=== PATIENT | female | born 1980 | race African-American/Black ===

== ENCOUNTER → 2022-03-05 | Day surgery (SDC) | payer OTHER ==
[2022-03-04 17:47] VITALS: BMI 34.9
[2022-03-05 07:38] VITALS: BP 90/57; PULSE 85; RESP 20; TEMP 97.8
== END | disposition home or self-care (01) ==
LOC: JASU-SURG 04:53
PROVIDERS: ATTEND Pain Medicine Pain Medicine
DX: Z53.9 Procedure and treatment not carried out, unspecified reason (principal)
CPT/HCPCS: 81025

== ENCOUNTER 2022-04-30 04:25 | Day surgery (SDC) | payer OTHER ==
[2022-04-25 11:52] VITALS: BMI 33.9
[~2022-04-30 04:25] MED LIST: BUPIVACAINE HCL/PF 0.25% (2.5MG/ML) 10 ML VIAL IJ ONE; DEXAMETHASONE SOD PHOSPHATE 10 MG/1 ML VIAL IM ONE; IOHEXOL 180 MG/1 ML ML IJ ONE; LIDOCAINE 1% P/F 10 MG/ML VIAL INF ONE
[2022-04-30] MEDS ORDERED: BUPIVACAINE HCL/PF 0.25% (2.5MG/ML) 10 ML VIAL ONE (07:29)
[2022-04-30] MEDS ORDERED: LIDOCAINE HCL/PF 1% SDV 5ML VIAL ONE (07:30)
[2022-04-30] MEDS ORDERED: TRIAMCINOLONE ACET 40MG/1ML VIAL ONE (07:30)
[2022-04-30] MEDS ORDERED: BUPIVACAINE HCL/PF 0.75% 10 ML VIAL ONE (07:30)
[2022-04-30] MEDS ORDERED: IOHEXOL 180 MG/1 ML ML IJ ONE ×3 (11:37→12:30)
[2022-04-30] MEDS ORDERED: LIDOCAINE 1% P/F 10 MG/ML VIAL INF ONE ×4 (11:37→11:50)
[2022-04-30] MEDS ORDERED: BUPIVACAINE HCL/PF 0.25% (2.5MG/ML) 10 ML VIAL IJ ONE (12:32)
[2022-04-30] MEDS ORDERED: DEXAMETHASONE SOD PHOSPHATE 10 MG/1 ML VIAL IM ONE (12:32)
[2022-04-30 13:06] VITALS: PULSE 68; RESP 22
[2022-04-30 13:31] VITALS: BP 95/55; TEMP 97.7
== END 2022-04-30 13:40 | disposition home or self-care (01) ==
LOC: JASU-SURG 04:25
PROVIDERS: ATTEND Pain Medicine Pain Medicine
PROC: 3E0T3BZ Introduction of Anesthetic Agent into Peripheral Nerves and Plexi, Percutaneous Approach (ICD-10-PCS; principal; 2022-04-30 10:30)
DX: G90.59 Complex regional pain syndrome I of other specified site (principal); G89.4 Chronic pain syndrome
CPT/HCPCS: 81025; J1100

== ENCOUNTER 2022-06-11 04:16 | Day surgery (SDC) | payer OTHER ==
[2022-06-07 12:26] VITALS: BMI 33.9
[~2022-06-11 04:16] MED LIST changes: -BUPIVACAINE HCL/PF 0.25% (2.5MG/ML) 10 ML VIAL IJ ONE; +BUPIVACAINE HCL/PF 0.5% (5MG/ML) 10 ML VIAL IJ ONE; +BUPIVACAINE HCL/PF 0.75% 10 ML VIAL NR ONE; -DEXAMETHASONE SOD PHOSPHATE 10 MG/1 ML VIAL IM ONE; -LIDOCAINE 1% P/F 10 MG/ML VIAL INF ONE; +LIDOCAINE HCL 1% PRESERVATIVE FREE - 30ML VIAL IJ ONE
[2022-06-11] MEDS ORDERED: DEXAMETHASONE SOD PHOSPHATE 10 MG/1 ML VIAL ONE (07:30)
[2022-06-11] MEDS ORDERED: BUPIVACAINE HCL/PF 0.25% (2.5MG/ML) 10 ML VIAL ONE (07:30)
[2022-06-11] MEDS ORDERED: LIDOCAINE HCL/PF 1% SDV 5ML VIAL ONE ×2 (07:30→12:35)
[2022-06-11] MEDS ORDERED: BUPIVACAINE HCL/PF 0.75% 10 ML VIAL NR ONE (12:07)
[2022-06-11] MEDS ORDERED: LIDOCAINE HCL 1% PRESERVATIVE FREE - 30ML VIAL IJ ONE ×2 (12:07)
[2022-06-11] MEDS ORDERED: IOHEXOL 180 MG/1 ML ML IJ ONE ×2 (12:10)
[2022-06-11] MEDS ORDERED: BUPIVACAINE HCL/PF 0.5% (5MG/ML) 10 ML VIAL IJ ONE (12:10)
[2022-06-11 13:20] VITALS: RESP 18; TEMP 97.9
[2022-06-11 14:17] VITALS: BP 104/61; PULSE 68
== END 2022-06-11 13:35 | disposition home or self-care (01) ==
LOC: JASU-SURG 04:16
PROVIDERS: ATTEND Pain Medicine Pain Medicine
PROC: 3E0T33Z Introduction of Anti-inflammatory into Peripheral Nerves and Plexi, Percutaneous Approach (ICD-10-PCS; 2022-06-11)
PROC: 3E0T3BZ Introduction of Anesthetic Agent into Peripheral Nerves and Plexi, Percutaneous Approach (ICD-10-PCS; principal; 2022-06-11 12:30)
DX: G89.4 Chronic pain syndrome (principal)
CPT/HCPCS: 76000-TC-FY; 81025; J1100

== ENCOUNTER 2022-08-02 04:10 | Day surgery (SDC) | payer OTHER ==
[2022-07-31 13:43] VITALS: BMI 33.9
[~2022-08-02 04:10] MED LIST changes: +ACETAMINOPHEN 500 MG TABLET (FP) PO PRN; -BUPIVACAINE HCL/PF 0.5% (5MG/ML) 10 ML VIAL IJ ONE; -BUPIVACAINE HCL/PF 0.75% 10 ML VIAL NR ONE; -IOHEXOL 180 MG/1 ML ML IJ ONE; -LIDOCAINE HCL 1% PRESERVATIVE FREE - 30ML VIAL IJ ONE
[2022-08-02] MEDS ORDERED: BUPIVACAINE HCL/PF 0.5% (5MG/ML) 10 ML VIAL ONE (07:30)
[2022-08-02] MEDS ORDERED: TRIAMCINOLONE ACET 40MG/1ML VIAL ONE (07:30)
[2022-08-02] MEDS ORDERED: LIDOCAINE HCL/PF 1% SDV 5ML VIAL ONE (07:30)
[2022-08-02 08:52] VITALS: RESP 18
[2022-08-02] MEDS ORDERED: ACETAMINOPHEN 500 MG TABLET (FP) PO PRN (09:21)
[2022-08-02] MEDS ORDERED: LIDOCAINE HCL 1% PRESERVATIVE FREE - 30ML VIAL IJ ONE ×2 (09:37→09:39)
[2022-08-02] MEDS ORDERED: TRIAMCINOLONE ACETONIDE 40 MG/ML 10 ML VIAL IJ ONE ×2 (09:38→09:39)
[2022-08-02] MEDS ORDERED: BUPIVACAINE HCL/PF 0.5% (5MG/ML) 10 ML VIAL IJ ONE ×2 (09:38→09:39)
[2022-08-02] MEDS ORDERED: IOHEXOL 180 MG/1 ML ML IJ ONE (09:39)
[2022-08-02 10:19] VITALS: BP 110/53; PULSE 79; TEMP 98.7
== END 2022-08-02 10:21 | disposition home or self-care (01) ==
LOC: JASU-SURG 04:10
PROVIDERS: ATTEND Pain Medicine Pain Medicine
PROC: 3E0U3BZ Introduction of Anesthetic Agent into Joints, Percutaneous Approach (ICD-10-PCS; 2022-08-02)
PROC: 3E0U33Z Introduction of Anti-inflammatory into Joints, Percutaneous Approach (ICD-10-PCS; principal; 2022-08-02 10:00)
DX: M53.3 Sacrococcygeal disorders, not elsewhere classified (principal)
CPT/HCPCS: 76000-TC-FY; 81025

== ENCOUNTER 2022-09-06 04:29 | Day surgery (SDC) | payer OTHER ==
[2022-09-05 09:15] VITALS: BMI 33.9
[2022-09-06 07:37] VITALS: RESP 16
[2022-09-06] MEDS ORDERED: BUPIVACAINE HCL/PF 0.75% 10 ML VIAL PNB ONE (11:00)
[2022-09-06] MEDS ORDERED: LIDOCAINE HCL 1% PRESERVATIVE FREE - 30ML VIAL IJ ONE (11:00)
[2022-09-06 11:31] VITALS: BP 121/70; PULSE 76; TEMP 98.8
[2022-09-06] MEDS ORDERED: ACETAMINOPHEN 500 MG TABLET (FP) PO PRN (14:43)
== END 2022-09-06 12:00 | disposition home or self-care (01) ==
LOC: JASU-SURG 04:29
PROVIDERS: ATTEND Pain Medicine Pain Medicine
PROC: 3E0T33Z Introduction of Anti-inflammatory into Peripheral Nerves and Plexi, Percutaneous Approach (ICD-10-PCS; 2022-09-06)
PROC: 3E0T3BZ Introduction of Anesthetic Agent into Peripheral Nerves and Plexi, Percutaneous Approach (ICD-10-PCS; principal; 2022-09-06 14:45)
DX: M47.816 Spondylosis without myelopathy or radiculopathy, lumbar region (principal)
CPT/HCPCS: 76000-TC-FY; 81025

== ENCOUNTER 2022-10-04 05:29 | Day surgery (SDC) | payer OTHER ==
[2022-10-03 09:37] VITALS: BMI 33.9
[~2022-10-04 05:29] MED LIST changes: -ACETAMINOPHEN 500 MG TABLET (FP) PO PRN; +BUPIVACAINE HCL/PF 0.75% 10 ML VIAL PNB ONE
[2022-10-04] MEDS ORDERED: BUPIVACAINE HCL/PF 0.75% 10 ML VIAL ONE (07:30)
[2022-10-04] MEDS ORDERED: LIDOCAINE HCL/PF 1% SDV 5ML VIAL ONE (07:30)
[2022-10-04 08:58] VITALS: RESP 18
[2022-10-04] MEDS ORDERED: ACETAMINOPHEN 500 MG TABLET (FP) PO PRN (09:57)
[2022-10-04] MEDS ORDERED: BUPIVACAINE HCL/PF 0.75% 10 ML VIAL PNB ONE (10:38)
[2022-10-04] MEDS ORDERED: LIDOCAINE HCL 1% PRESERVATIVE FREE - 30ML VIAL IJ ONE (10:38)
[2022-10-04 11:10] VITALS: TEMP 97.8
[2022-10-04 11:22] VITALS: BP 121/69; PULSE 70
== END 2022-10-04 11:20 | disposition home or self-care (01) ==
LOC: JASU-SURG 05:29
PROVIDERS: ATTEND Pain Medicine Pain Medicine
PROC: 3E0T33Z Introduction of Anti-inflammatory into Peripheral Nerves and Plexi, Percutaneous Approach (ICD-10-PCS; 2022-10-04)
PROC: 3E0T3BZ Introduction of Anesthetic Agent into Peripheral Nerves and Plexi, Percutaneous Approach (ICD-10-PCS; principal; 2022-10-04 10:30)
DX: M47.816 Spondylosis without myelopathy or radiculopathy, lumbar region (principal)
CPT/HCPCS: 76000-TC-FY; 81025

== ENCOUNTER → 2022-11-19 | Day surgery (SDC) | payer OTHER ==
[2022-11-15 17:10] VITALS: BMI 33.9
[~2022-11-19] MED LIST changes: +BUPIVACAINE HCL/PF 0.75% 10 ML VIAL ONE; -BUPIVACAINE HCL/PF 0.75% 10 ML VIAL PNB ONE; +DEXAMETHASONE SOD PHOSPHATE 10 MG/1 ML VIAL ONE; +LIDOCAINE HCL/PF 1% SDV 5ML VIAL ONE; +LIDOCAINE HCL/PF 2% SDV 5ML VIAL ONE
== END | disposition home or self-care (01) ==
LOC: JASU-SURG 05:07
PROVIDERS: ATTEND Pain Medicine Pain Medicine
DX: Z53.8 Procedure and treatment not carried out for other reasons (principal)
CPT/HCPCS: J1100

== ENCOUNTER 2022-12-17 05:18 | Day surgery (SDC) | payer OTHER ==
[2022-12-16 12:56] VITALS: BMI 33.9
[~2022-12-17 05:18] MED LIST changes: +BUPIVACAINE HCL/PF 0.75% 10 ML VIAL NR ONE; -BUPIVACAINE HCL/PF 0.75% 10 ML VIAL ONE; +DEXAMETHASONE SOD PHOSPHATE 10 MG/1 ML VIAL IVPUSH ONE; -DEXAMETHASONE SOD PHOSPHATE 10 MG/1 ML VIAL ONE; +LIDOCAINE HCL 1% PRESERVATIVE FREE - 30ML VIAL IJ ONE; -LIDOCAINE HCL/PF 1% SDV 5ML VIAL ONE; +LIDOCAINE HCL/PF 2% SDV 5ML VIAL INF ONE; -LIDOCAINE HCL/PF 2% SDV 5ML VIAL ONE
[2022-12-17 08:02] VITALS: RESP 18
[2022-12-17] MEDS ORDERED: LIDOCAINE HCL/PF 1% SDV 5ML VIAL ONE (09:33)
[2022-12-17] MEDS ORDERED: DEXAMETHASONE SOD PHOSPHATE 10 MG/1 ML VIAL ONE (09:33)
[2022-12-17] MEDS ORDERED: LIDOCAINE HCL 1% PRESERVATIVE FREE - 30ML VIAL IJ ONE (09:41)
[2022-12-17 10:16] VITALS: TEMP 96.9
[2022-12-17 10:27] VITALS: BP 129/77; PULSE 69
== END 2022-12-17 10:25 | disposition home or self-care (01) ==
LOC: JASU-SURG 05:18
PROVIDERS: ATTEND Pain Medicine Pain Medicine
PROC: 015B3ZZ Destruction of Lumbar Nerve, Percutaneous Approach (ICD-10-PCS; principal; 2022-12-17 09:45)
DX: M47.816 Spondylosis without myelopathy or radiculopathy, lumbar region (principal)
CPT/HCPCS: 76000-TC-FY; 81025; J1100

== ENCOUNTER → 2023-01-14 | Day surgery (SDC) | payer OTHER ==
[2023-01-10 17:47] VITALS: BMI 33.9
[~2023-01-14] MED LIST changes: +ACETAMINOPHEN 500 MG TABLET (FP) PO PRN; +BUPIVACAINE HCL/PF 0.5% (5MG/ML) 10 ML VIAL ONE; -BUPIVACAINE HCL/PF 0.75% 10 ML VIAL NR ONE; +BUPIVACAINE HCL/PF 0.75% 10 ML VIAL ONE; -DEXAMETHASONE SOD PHOSPHATE 10 MG/1 ML VIAL IVPUSH ONE; +DEXAMETHASONE SOD PHOSPHATE 10 MG/1 ML VIAL ONE; -LIDOCAINE HCL 1% PRESERVATIVE FREE - 30ML VIAL IJ ONE; +LIDOCAINE HCL/PF 1% SDV 5ML VIAL ONE; -LIDOCAINE HCL/PF 2% SDV 5ML VIAL INF ONE; +LIDOCAINE HCL/PF 2% SDV 5ML VIAL ONE
== END | disposition home or self-care (01) ==
LOC: JASU-SURG 04:54
PROVIDERS: ATTEND Pain Medicine Pain Medicine
DX: Z53.8 Procedure and treatment not carried out for other reasons (principal)
CPT/HCPCS: J1100

== ENCOUNTER 2024-04-16 03:49 | Day surgery (SDC) | payer OTHER ==
[2024-04-14 11:51] VITALS: BMI 32.5
[2024-04-16] MEDS ORDERED: LIDOCAINE HCL/PF 1% SDV 5ML VIAL ONE (07:28)
[2024-04-16] MEDS ORDERED: ACETAMINOPHEN 500 MG TABLET (FP) PO PRN (08:56)
[2024-04-16 09:10] VITALS: RESP 18
[2024-04-16] MEDS ORDERED: LIDOCAINE HCL/PF 2% SDV 5ML VIAL ONE (09:16)
[2024-04-16 12:28] VITALS: BP 104/74; PULSE 64; TEMP 98
== END 2024-04-16 10:45 | disposition home or self-care (01) ==
LOC: JASU-SURG 03:49
PROVIDERS: ATTEND Pain Medicine Pain Medicine
PROC: 015B3ZZ Destruction of Lumbar Nerve, Percutaneous Approach (ICD-10-PCS; principal; 2024-04-16 09:46)
DX: M47.816 Spondylosis without myelopathy or radiculopathy, lumbar region (principal)
CPT/HCPCS: 76000-TC-FY; 81025

== ENCOUNTER 2024-05-14 04:24 | Day surgery (SDC) | payer OTHER ==
[2024-05-12 10:30] VITALS: BMI 32.5
[2024-05-14] MEDS ORDERED: ACETAMINOPHEN 500 MG TABLET (FP) PO PRN (09:00)
[2024-05-14] MEDS: DEXAMETHASONE SOD PHOSPHATE 10 MG/1 ML VIAL IVPUSH ONE ×2 (10:40)
[2024-05-14] MEDS: BUPIVACAINE HCL/PF 0.75% 10 ML VIAL NR ONE ×3 (10:40)
[2024-05-14] MEDS: LIDOCAINE HCL/PF 2% SDV 5ML VIAL INF ONE ×2 (10:40)
[2024-05-14] MEDS: LIDOCAINE 1% P/F 10 MG/ML VIAL INF ONE ×2 (10:40)
[2024-05-14 11:07] VITALS: BP 106/74; PULSE 67; RESP 20; TEMP 97.3
== END 2024-05-14 12:07 | disposition home or self-care (01) ==
LOC: JASU-SURG 04:24
PROVIDERS: ATTEND Pain Medicine Pain Medicine
PROC: 015B3ZZ Destruction of Lumbar Nerve, Percutaneous Approach (ICD-10-PCS; principal; 2024-05-14 11:15)
DX: M47.816 Spondylosis without myelopathy or radiculopathy, lumbar region (principal)
CPT/HCPCS: 76000-TC-FY; 81025; J1100